=== PATIENT | female | born 1980 | race Caucasian/White ===

== ENCOUNTER → 2016-08-17 10:06 | Outpatient (CLI) | payer MEDICAID ==
[2016-04-10 05:35] VITALS: BMI 38.1
[~2016-08-17 10:06] MED LIST: BIRTH CONTROL; FLUTICASONE PRO16 GM NASAL; HYDROCHLOROTHIA25 MG PO; HYDROCODONE-APA1 TAB PO; MIRALAX17 GM PO; PRILOSEC20 MG PO; REMERON30 MG PO; ULTRAM50 MG PO; ZOCOR20 MG PO
== END | disposition home or self-care (01) ==
LOC: D.RAD 10:06
DX: K31.7 Polyp of stomach and duodenum (principal)

== ENCOUNTER 2016-08-21 14:21 | Emergency (ER) | payer MEDICAID ==
[2016-04-10 05:35] VITALS: BMI 38.1
== END 2016-08-21 15:55 | disposition home or self-care (01) ==
LOC: D.ER 14:21
DX: B34.9 Viral infection, unspecified (principal); F17.200 Nicotine dependence, unspecified, uncomplicated

== ENCOUNTER → 2017-08-16 12:09 | Outpatient (CLI) | payer MEDICAID ==
[2016-04-10 05:35] VITALS: BMI 38.1
[2017-08-16 13:09] LABS: T4 THYROXIN - FREE 0.71 ng/dL (0.76-1.46); THYROID STIMULATING HORMONE 2.23 uIU/mL (0.36-3.74)
== END | disposition home or self-care (01) ==
LOC: D.LABREF 12:09
PROVIDERS: Orthopaedic Surgery
DX: M79.642 Pain in left hand (principal); M79.641 Pain in right hand

== ENCOUNTER 2019-03-18 15:06 | Emergency (ER) | payer MEDICARE, MEDICAID ==
[~2019-03-18] VITALS: Ht 172.7 cm; Wt 113.2 kg
[2019-03-18 15:06] VITALS: Ht 172.7 cm; Wt 113.2 kg
[2019-03-18] MEDS ORDERED: HYDROCORTISONE30 G9 (15:15)
[2019-03-18] MEDS ORDERED: PERCOCET 10-321 EAC1 (15:15)
[2019-03-18] MEDS ORDERED: AMITIZA24 MCG (15:15)
[2019-03-18] MEDS ORDERED: FLOVENT HFA 11012 GM (15:16)
[2019-03-18] MEDS ORDERED: FLUTICASONE PRO16 GM (15:16)
[2019-03-18] MEDS ORDERED: NEURONTIN 300300 MG (15:16)
[2019-03-18] MEDS ORDERED: COLACE100 MG (15:17)
[2019-03-18] MEDS ORDERED: PEPCID40 MG PO (15:18)
[2019-03-18] MEDS ORDERED: ALBUTEROL SULF8.5 GM (15:19)
[2019-03-18] MEDS ORDERED: CHANTIX 1 MG TAB1 MG (15:19)
[2019-03-18] MEDS ORDERED: PRAVACHOL20 MG (15:20)
[2019-03-18] MEDS ORDERED: CARAFATE1 G (15:20)
[2019-03-18] MEDS ORDERED: NAPROSYN500 MG (15:21)
[2019-03-18] MEDS ORDERED: CALAN SR180 MG (15:21)
[2019-03-18] MEDS ORDERED: IMITREX100 MG (15:21)
[2019-03-18] MEDS ORDERED: TOPAMAX50 MG (15:22)
[2019-03-18] MEDS ORDERED: PERCOCET 7.5/321 TAB (15:23)
[2019-03-18] MEDS ORDERED: CLEOCIN HCL300 MG PO (15:26)
[2019-03-18 16:16] VITALS: BP 148/92
== END 2019-03-18 16:16 | disposition home or self-care (01) ==
LOC: D.ER 15:06
DX: L03.116 Cellulitis of left lower limb (principal); F32.9 Major depressive disorder, single episode, unspecified